=== PATIENT | female | born 1985 | race Caucasian/White ===

== ENCOUNTER 2016-12-11 06:31 | Inpatient (IN) | payer OTHER ==
[2016-12-11] MEDS ORDERED: PENICILLIN G POTASSIUM 5,000,000 UNIT in DEXTROSE 5%-WATER 100 ML IV ONE (06:43)
[2016-12-11] MEDS ORDERED: RINGERS SOLUTION,LACTATED 1,000 ML IV PRN (06:43)
[2016-12-11] MEDS ORDERED: OXYTOCIN/NORMAL SALINE 20 UNIT/1,000 ML RTUINJ IV PRN ×2 (06:45→16:29)
[2016-12-11] MEDS ORDERED: RINGERS SOLUTION,LACTATED 300 ML IV ONE (06:45)
[2016-12-11] MEDS ORDERED: PENICILLIN G-K 5 MILLION UNIT VIAL IV ONE (07:15)
[2016-12-11 07:17] LABS: ABSOLUTE EOSINOPHILS # (AUTO) 0.1 10^3/uL (0.0-0.6); ABSOLUTE LYMPHOCYTES (AUTO) 1.6 10^3/uL (0.5-4.7); ABSOLUTE MONOCYTES (AUTO) 0.4 10^3/uL (0.1-1.4); ABSOLUTE NEUT (AUTO) 7.9 10^3/uL (1.7-8.2); BASOPHILS % (AUTO) 0.4 % (0-2); EOSINOPHILS % (AUTO) 1.2 % (0-6); HEMATOCRIT 36.9 % (36.0-47.0); HEMOGLOBIN 12.4 g/dL (12.0-15.5); HGB HCT DIFFERENCE 0.3; MEAN CORPUSCULAR HEMOGLOBIN 29.4 pg (27.0-33.4); MEAN CORPUSCULAR HGB CONC 33.7 g/dL (32.0-36.0); MEAN CORPUSCULAR VOLUME 87 fl (80-97); MONOCYTES % (AUTO) 3.5 % (3-13); RED BLOOD COUNT 4.24 10^6/uL (3.72-5.28); RED CELL DISTRIBUTION WIDTH 15.2 % (11.5-14.0); SEGMENTED NEUTROPHILS % (AUTO) 78.9 % (42-78)
[2016-12-11 07:51] LABS: APPEARANCE,URINE CLOUDY; BILIRUBIN,URINE NEGATIVE (NEGATIVE); GLUCOSE, URINE NEGATIVE (NEGATIVE); KETONES,URINE NEGATIVE (NEGATIVE); LEUKOCYTE ESTERASE,URINE MODERATE (NEGATIVE); NITRITE,URINE NEGATIVE (NEGATIVE); PROTEIN,URINE NEGATIVE (NEGATIVE); UROBILINOGEN,URINE NEGATIVE mg/dL (<2.0)
[2016-12-11] MEDS ORDERED: OXYTOCIN/NORMAL SALINE 20 UNIT/1,000 ML RTUINJ ONE (08:04)
[2016-12-11] MEDS ORDERED: PENICILLIN G-K 5 MILLION UNIT VIAL ONE ×2 (08:04→11:49)
[2016-12-11 08:09] LABS: URINE BARBITURATES SCREEN NEGATIVE; URINE METHADONE SCREEN NEGATIVE; URINE OPIATES LOW NEGATIVE; URINE PHENCYCLIDINE SCREEN NEGATIVE
--- NOTE | 2016-12-11 09:51 | L&D Progress Notes ---
PROGRESS NOTES Datetime Report Generated by CPN: 12/11/2016 09:51 PROGRESS NOTE Impression: Reassuring Heart Rate Plan: Continue Present Management; Induction Informed Consent Obtained: Vaginal Delivery Vital Signs : Reviewed; Within Normal Limits Comment: discussed POC with pt and hsb, + GBS, irreg uc's at 1 strip FETUS A FHR - Baseline: 155 Monitoring: External US Variability: Moderate 6-25bpm Accelerations: 15X15 Decelerations: Variable SIGNATURE SIGNATURE: [id number] Assignment: Suellen Castro MD Signature: with User ID: [email or web address] : with User ID: [email or web address]
[2016-12-11] MEDS ORDERED: PENICILLIN G POTASSIUM 2,500,000 UNIT in DEXTROSE 5%-WATER 50 ML IV SCH (10:44)
[2016-12-11] MEDS: PENICILLIN G-K 5 MILLION UNIT VIAL IV SCH (12:02)
--- NOTE | 2016-12-11 12:12 | L&D Progress Notes ---
PROGRESS NOTES Datetime Report Generated by CPN: 12/11/2016 12:12 PROGRESS NOTE Impression: Normal Progression of Labor; Reassuring Heart Rate Procedures: Artificial ROM; Sterile Vag Exam Plan: Continue Present Management; Induction Informed Consent Obtained: Vaginal Delivery Comment: sitting in rocking chair, tolerating labor well, VE 5/80/vtx/0, arom, clear fluid, uc's q 2-4 MEMBRANES Membranes: Ruptured Amniotic Fluid Color: Clear FETUS A FHR - Baseline: 155 Monitoring: External US Variability: Moderate 6-25bpm Accelerations: 15X15 Decelerations: Variable FETUS C SIGNATURE: [id number] Assignment: Suellen Castro MD Signature: with User ID: [email or web address] : with User ID: [email or web address]
[2016-12-11] MEDS ORDERED: EPHEDRINE SULFATE INJ 50 MG/1 ML AMPULE ONE (12:35)
[2016-12-11] MEDS ORDERED: FENTANYL/BUPIVACAINE/NS/PF 200 MCG/100 ML RTUINJ EPI ONE (12:36)
[2016-12-11] MEDS ORDERED: BUPIVACAINE HCL 0.25 % INJ/PF (2.5 MG/1 ML) 30 ML VIAL ONE (12:36)
[2016-12-11] MEDS ORDERED: MISOPROSTOL 0.2 MG TABLET ONE (13:58)
[2016-12-11] MEDS ORDERED: LIDOCAINE 1% INJ-PF (10 MG/ML) 30 ML SDV ONE (13:58)
[2016-12-11] MEDS ORDERED: DIBUCAINE 1% OINTMENT 28 GM TP PRN (16:03)
[2016-12-11] MEDS ORDERED: PSEUDOEPHEDRINE HCL 30 MG TABLET PO PRN (16:03)
[2016-12-11] MEDS ORDERED: MAGNESIUM HYDROXIDE SUSP 30 ML UDCUP PO PRN (16:03)
[2016-12-11] MEDS ORDERED: OXYTOCIN/NORMAL SALINE 1,000 ML IV PRN (16:03)
[2016-12-11] MEDS ORDERED: NA PHOS,M-B/NA PHOS,DI-BA (ADULT) 133 ML ENEMA PR PRN (16:03)
[2016-12-11] MEDS ORDERED: GLYCERIN/WITCH HAZEL LEAF 1 EACH MED..PAD TP PRN (16:03)
[2016-12-11] MEDS ORDERED: BENZOCAINE/MENTHOL AEROSOL SPRAY 56 ML TOP PRN (16:03)
[2016-12-11] MEDS ORDERED: ACETAMINOPHEN 650 MG SUPP.RECT PR PRN (16:03)
[2016-12-11] MEDS ORDERED: PROMETHAZINE HCL INJ 25 MG/1 ML VIAL IV PRN (16:03)
[2016-12-11] MEDS ORDERED: ACETAMINOPHEN WITH CODEINE #3 TABLET PO PRN ×2 (16:03)
[2016-12-11] MEDS ORDERED: PROMETHAZINE HCL 25 MG TABLET PO PRN (16:03)
[2016-12-11] MEDS ORDERED: MISOPROSTOL 0.2 MG TABLET PR PRN (16:03)
[2016-12-11] MEDS ORDERED: DIPHENHYDRAMINE HCL 25 MG CAPSULE PO PRN (16:03)
[2016-12-11] MEDS ORDERED: DIPH/PERTUSS(ACELL)/TETANUS VAC/PF 0.5 ML SYR (>=10YO) IM PRN (16:03)
[2016-12-11] MEDS ORDERED: PROMETHAZINE HCL 25 MG SUPP.RECT PR PRN (16:03)
[2016-12-11] MEDS ORDERED: MEASLES,MUMPS&RUBELLA VACC/PF 0.5 ML VIAL SUBCUT PRN (16:03)
--- NOTE | 2016-12-11 17:51 | Delivery Summary ---
Del Sum A-C Datetime Report Generated by CPN: 12/11/2016 17:51 DELIVERY PERSONNEL DELIVERY PERSONNEL: [id number] Delivery Doctor:: Luz Nails CNM Nurse Language And Literature Division Chair Certified:: Luz Nails CNM Labor and Delivery Nurse:: Elmira Alejandra RN Labor and Delivery Nurse:: Katie Soto RN Student Observers:: Saad Elliott MS3 Jewel[employer] Casting Model Maker Apprentice/KHUSHBOO: Jerzy Prajapati CST Additional Personnel: : Suellen Castro RN MATERNAL INFORMATION Delivery Anesthesia: Epidural Medications After Delivery: Pitocin Drip 20 Units/1000ml NSS; Cytotec 600mcg Per Rectum/Vagina Estimated Blood Loss (ml): 400 Maternal Complications: None Provider Comments: viable female from OA to MARAH over ML lac, At delivery of vertex, pt stopped pushing, shoulder under pubic bone, Tammi and Suprapubic pressure with delivery of infant, Large mec stained fluid with particulate at delivery. Placed on mothers abd, cord double clamped and cut by FOB, baby crying and moving all extremeties. Spontaeous delivery of grossly normal intact placenta, 3 VC, EBL 400cc, Lac repaired with 2-0 chromic without difficulty, homostasis obtained, rectum patent, FFFM IV Pitocin, massage and Cytotec 600 mcg via rectum Baby and mom remain in recovery in stable condition (Annotations: Data stored by CPN on behalf of user) LABOR SUMMARY EDC: 12/07/2016 00:00 No. Babies in Womb: 1 Labor Anesthesia: Epidural LABOR INFORMATION Reason for Induction: Post Dates Onset of Labor: 12/11/2016 12:06 Complete Dilatation: 12/11/2016 14:46 Oxytocin: Induction Group B Beta Strep: positive Antibiotics # of Doses: 2 Antibiotics Time of Last Dose: 1202 Name of Antibiotic Given: Penicillin Steroids Given: None Reason Steroids Not Administered: Not Applicable MEMBRANES Membranes Rupture Method: Artificial Rupture of Membranes: 12/11/2016 12:06 Length of Rupture (hr): 3.17 Amniotic Fluid Color: Clear Amniotic Fluid Amount: Moderate Amniotic Fluid Odor: Normal STAGES OF LABOR Stage 1 hr: 2 Stage 1 min: 40 Stage 2 hr: 0 Stage 2 min: 30 Stage 3 hr: 0 Stage 3 min: 8 Total Time in Labor hr: 3 Total Time in Labor min: 18 VAGINAL DELIVERY Episiotomy: None Laceration #1: Perineal Laceration Extension #1: Second Degree Other Laceration: midline Laceration Repair: Yes Laceration Repair Note: 2-0 chromic without difficulty Sponge Count Correct: Yes Sharps Count Correct: N/A BABY A INFORMATION Delivery Date/Time: 12/11/2016 15:16 Method of Delivery: Vaginal Born in Route : No : N/A Forceps: N/A Vacuum Extraction: N/A Shoulder Dystocia : No PRESENTATION/POSITION BABY A Presentation: Cephalic Cephalic Presentation: Vertex Vertex Position: Right Occipital Anterior Breech Presentation: N/A PLACENTA INFORMATION BABY A Placenta Delivery Time : 12/11/2016 15:24 Placenta Method of Delivery: Spontaneous Placenta Status: Delivered SCORES BABY A Heart Rate 1 min: >100 bpm Resp Effort 1 min: Good Cry Reflex Irritability 1 min: Cough or Sneeze or Pulls Away Muscle Tone 1 min: Active Motion Color 1 min: Body [place], Extremities Blue Resuscitation Effort 1 min: Tactile Stimulation SCORE 1 MIN: 9 Heart Rate 5 min: >100 bpm Resp Effort 5 min: Good Cry Reflex Irritability 5 min: Cough or Sneeze or Pulls Away Muscle Tone 5 min: Active Motion Color 5 min: Body [place], Extremities Blue Resuscitation Effort 5 min: Tactile Stimulation SCORE 5 MIN: 9 INFANT INFORMATION BABY A Gestational Age at Delivery: 40.4 Gestational Status: Full Term- 39- 40.6 Weeks Outcome : Liveborn Condition : Stable Sex: Female IDENTIFICATION BABY A Verification Date/Time: 12/11/2016 15:37 ID Band Number: [id number] Mother's Name Verified: Yes RN Verifying Infant: A CASTRO, RN Additional Verifying Personnel: GRISELDA RILEY, RN WEIGHT/LENGTH BABY A Birthweight (gm): 3940 Infant Weight (lb): 8 Infant Weight (oz): 11 Infant Length (in): 21.00 Infant Length (cm): 53.34 CORD INFORMATION BABY A No. Cord Vessels: 3 Nuchal Cord : N/A Cord Blood Taken: Yes-For Eval (Mom's Blood Type - or O+) Infant Suction: Mouth ASSESSMENT BABY A Infant Complications: Meconium Physical Findings at Delivery: Puncture Wound from Scalp Electrode Respirations: Appears Normal Skin to Skin: Yes Skin to Skin Time (min): 60 Nursing Home Director/ALS Called : No Infant Care By: Jocelyne Castro RN Transferred To: Remains with Mother
[2016-12-11] MEDS: FAMOTIDINE 20 MG TABLET PO SCH (21:05)
[2016-12-11] MEDS: IBUPROFEN 800 MG TABLET PO SCH (21:05)
[2016-12-12] MEDS: IBUPROFEN 800 MG TABLET PO SCH ×3 (05:18→21:06)
[2016-12-12 07:41] LABS: HEMATOCRIT 33.2 % (36.0-47.0); HEMOGLOBIN 11.3 g/dL (12.0-15.5); HGB HCT DIFFERENCE 0.7; MEAN CORPUSCULAR HEMOGLOBIN 29.5 pg (27.0-33.4); MEAN CORPUSCULAR HGB CONC 34.1 g/dL (32.0-36.0); MEAN CORPUSCULAR VOLUME 87 fl (80-97); RED BLOOD COUNT 3.83 10^6/uL (3.72-5.28); RED CELL DISTRIBUTION WIDTH 15.6 % (11.5-14.0); WHITE BLOOD COUNT 14.1 10^3/uL (4.0-10.5)
[2016-12-12] MEDS: PENICILLIN G-K 5 MILLION UNIT VIAL IV SCH ×2 (10:45→11:17)
[2016-12-12] MEDS: PRENATAL VITAMIN W-O CA NO5/FE FUMARATE/FA CAPSULE PO SCH (10:50)
[2016-12-12] MEDS: DOCUSATE SODIUM 100 MG CAPSULE PO SCH ×2 (10:52→17:43)
[2016-12-12] MEDS: FERROUS SULFATE 325 MG TABLET PO SCH ×2 (10:52→17:43)
[2016-12-12] MEDS: FAMOTIDINE 20 MG TABLET PO SCH ×2 (10:53→21:06)
[2016-12-12] MEDS: SENNOSIDES/DOCUSATE 8.6-50 MG 1 EACH TABLET PO SCH (10:53)
[2016-12-13] MEDS: IBUPROFEN 800 MG TABLET PO SCH (05:56)
[2016-12-13 08:19] VITALS: BP 123/63
--- NOTE | 2016-12-13 08:51 | PDOC DISCHARGE SUMMARY ---
Final Diagnosis Discharge Date: 12/13/16 - Final Diagnosis (1) Rh negative status during Is this a current diagnosis for this admission?: Yes (2) Vaginal delivery Is this a current diagnosis for this admission?: Yes Discharge Data - Discharge Medication Home Medications: Pnv with Ca,No.71/Iron/FA [ Vitamin Tablet] 1 tab PO DAILY 05/16/13 Aspirin [Aspirin 81 mg Chewable Tablet] 1 tab PO DAILY 12/11/16 Reason(s) for Admission: Induction of Labor Procedures: None Intrapartum Procedure(s): Spontaneous Vaginal Delivery Complication(s): Laceration-Vaginal Laceration-Degree: 2nd - Diagnosis Test Laboratory: Temp Pulse Resp BP Pulse Ox 97.9 F 76 16 123/63 99 12/13/16 08:04 12/13/16 08:04 12/13/16 08:04 12/13/16 08:04 12/13/16 08:04 12/11/16 12/11/16 12/12/16 06:50 07:02 07:03 RBC 4.24 3.83 Hgb 12.4 11.3 L Hct 36.9 33.2 L Urine Opiates Screen NEGATIVE - Discharge information/Instructions Discharge Activity: Activity As Tolerated Discharge Diet: Regular Disposition: HOME, SELF-CARE Follow up with: [facility] in: 4
[2016-12-13] MEDS: FERROUS SULFATE 325 MG TABLET PO SCH (09:45)
[2016-12-13] MEDS: PRENATAL VITAMIN W-O CA NO5/FE FUMARATE/FA CAPSULE PO SCH (09:46)
[2016-12-13] MEDS: DOCUSATE SODIUM 100 MG CAPSULE PO SCH (09:46)
[2016-12-13] MEDS: SENNOSIDES/DOCUSATE 8.6-50 MG 1 EACH TABLET PO SCH (09:46)
[2016-12-13] MEDS: FAMOTIDINE 20 MG TABLET PO SCH (09:46)
--- NOTE | 2017-01-25 11:17 | PDOC H&P ---
History of Present Illness Admission Date/PCP: 12/11/16 06:31 Patient complains of: contractions/labor induction for post dates History of Present Illness: RADHA VIDAL is a 31 year old female Social History Smoking Status: Unknown if Ever Smoked Family History Parental Family History Reviewed: Yes Children Family History Reviewed: Yes Sibling(s) Family History Reviewed.: Yes Medication/Allergy Home Medications: Pnv with Ca,No.71/Iron/FA [ Vitamin Tablet] 1 tab PO DAILY 05/16/13 Aspirin [Aspirin 81 mg Chewable Tablet] 1 tab PO DAILY 12/11/16 Ibuprofen [Motrin 800 mg Tablet] 800 mg PO Q8 #90 tablet 12/13/16 Allergies/Adverse Reactions: No Known Allergies Allergy (Verified 12/11/16 06:41) Physical Exam - Physical Exam Vital Signs: Temp Pulse Resp BP Pulse Ox 97.9 F 76 16 123/63 99 12/13/16 08:04 12/13/16 08:04 12/13/16 08:04 12/13/16 08:04 12/13/16 08:04 Result Laboratory Results: 12/12/16 07:03 Assessment & Plan - Diagnosis (1) Qualifiers: Weeks of gestation: 41 weeks Qualified Code(s): Z3A.41 - 41 weeks gestation of Is this a current diagnosis for this admission?: Yes (2) Post-dates Qualifiers: Post-term type: 40-42 weeks gestation Qualified Code(s): O48.0 - Post-term Is this a current diagnosis for this admission?: Yes - Plan Summary Plan Summary: admit for induction and augmentation. May have epidural as desired.
== END 2016-12-13 10:36 | disposition home or self-care (01) | DRG 775 ==
LOC: LR 06:31 → 2S 18:38
PROVIDERS: ADMIT Obstetrics & Gynecology; ATTEND Obstetrics & Gynecology
PROC: 10E0XZZ Delivery of Products of Conception, External Approach (ICD-10-PCS; principal; 2016-12-11)
PROC: 0KQM0ZZ Repair Perineum Muscle, Open Approach (ICD-10-PCS; 2016-12-11)
PROC: 4A1HXCZ Monitoring of Products of Conception, Cardiac Rate, External Approach (ICD-10-PCS; 2016-12-11)
PROC: 3E0P3VZ Introduction of Hormone into Female Reproductive, Percutaneous Approach (ICD-10-PCS; 2016-12-11)
DX: O77.0 Labor and delivery complicated by meconium in amniotic fluid (principal); O48.0 Post-term pregnancy; O70.1 Second degree perineal laceration during delivery; O99.824 Streptococcus B carrier state complicating childbirth; O26.893 Other specified pregnancy related conditions, third trimester; Z3A.41 41 weeks gestation of pregnancy; Z67.91 Unspecified blood type, Rh negative; Z37.0 Single live birth
CPT/HCPCS: 36415; 80307; 81005; 85025; 85027; 86592; 86850; 86900; 86901; 94760; J2540; J2590; J3490